=== PATIENT | female | born 1955 | race Caucasian/White ===

== ENCOUNTER → 2018-05-29 09:50 | Outpatient (CLI) | payer OTHER, SELFPAY ==
--- NOTE | 2018-05-29 09:53 | BI_ITS ---
MAMMOGRAPHY - BILATERAL SCREENING REASON FOR EXAM: Female, 62 years old. Routine annual screening examination. PERTINENT HISTORY: Non-contributory. TECHNIQUE: Digital bilateral breast curly (3D mammographic acquisition) in the CC and MLO projections. 2-D mediolateral oblique (MLO) and craniocaudad (CC) views of both breasts were obtained. CAD: Full Field Digital Mammography with Computer Added Detection was performed. COMPARISON: Comparison is made with prior examination dated May 19, 2017 and May 08, 2016. FINDINGS: Breast Composition: The breasts are heterogeneously dense, which may obscure small masses. There are no dominant masses or suspicious calcifications. A port is seen in the left axillary region. No other significant abnormalities are identified. There has been no significant change since the prior study. BI/SCREENING MAMM (CAD), BILAT IMPRESSION: Stable bilateral screening mammogram. Yearly follow-up mammogram recommended. (A) ASSESSMENT CATEGORY: BIRADS Category 2: Benign. A letter regarding these results will be sent to the patient by the facility within 30 days. Approximately 10% of breast cancers are not detected by mammography. A normal mammogram should not delay biopsy of a clinically suspicious abnormality. [id number] Electronically Signed: Chip Dubois MD at 10:57 EDT Tel [phone], Service support ,
== END ==
PROVIDERS: Family Provider Family Medicine; PCP Family Medicine; Visit Provider Family Medicine
DX: Z12.31 Encounter for screening mammogram for malignant neoplasm of breast (principal)
CPT/HCPCS: 77063; 77067

== ENCOUNTER 2018-08-03 06:36 | Day surgery (SDC) | payer OTHER, SELFPAY ==
[2018-08-03] VITALS (7 sets, daily range): BP systolic 101–120; BP diastolic 58–75; PULSE 60–70; RESP 16–18; TEMP 36.4–36.9; O2SAT 96–99
--- NOTE | 2018-08-03 08:00 | COLBX_PTH ---
PATIENT: LARA GARCIA LOC: EN U#:[id number] AGE/SX: 62/F ROOM: RE08/03/[address]: Dr. Dick De MD : 1955 BED: DIS: 08/03/2018 SPEC #: [id number] RECD: 08/03/18 10:38 STATUS: JULIETA ALEN #: [id number] ANTHONY: 08/03/18 08:[address]: Dick De DEPT: SURGICAL PATHOLOGY RECD BY: Mena Christina ENTERED: 08/03/18 11:09 SP TYPE: COLON BX OTHR DR: Dr. Katy Holland MD Tissues: COLON BIOPSY Procedures: Surgery Specimen Level IV HEADER OPERATION: Colonoscopy (MAC) PRE-OP DIAGNOSIS: History of colon cancer TISSUE SUBMITTED: Biopsy of colon anastomosis MICROSCOPIC DIAGNOSIS Colon anastomosis, biopsy: Fragments of colonic mucosa with focal ulceration, associated acute inflammation and granulation tissue reaction and reactive changes. Negative for malignancy. See comment. GURPREET:tony 08/04/18 COMMENT Please make reference to previous specimen ([id number]) sigmoid colon, colectomy with diagnosis of invasive mucinous adenocarcinoma. MICROSCOPIC DESCRIPTION Slides are reviewed. GROSS DESCRIPTION Received in fixative is one container labeled with the patient's name and designated biopsy of colon anastomosis. The specimen consists of multiple irregular fragments of light puckett soft tissue that in aggregate measure 2 x 0.3 x 0.1 cm. The specimen is totally submitted in one cassette. / GURPREET:tony 08/03/18 TC:2 CPT: 73886
--- NOTE | 2018-08-03 08:19 | PCM.HP.STD ---
Problem List (1) Personal history of colon cancer Status: Acute History of Present Illness Date of Admission: 08/03/18 The patient is a 62 year old F who presents today for colonoscopy. Patient status post laparoscopic sigmoid colectomy on 07/29/2017 this was for invasive moderately differentiated adenocarcinoma. Past Medical History Past Medical History (Chronic Problems): Chronic Problems (Last Reviewed 06/29/18 @ 13:13 by Dick De MD) Anemia (Chronic) Regional lymph node metastasis present (Chronic) Cancer of sigmoid colon (Chronic) Hypertension (Chronic) Neuropathy (Chronic) Medical History: Medical History (Last Reviewed 08/03/18 @ 08:21 by Dick De MD) Chemotherapy induced neutropenia (Resolved) D70.1, T45.1X5A Adjustment disorder (Acute) F43.20 Chemotherapy induced nausea and vomiting (Resolved) R11.2, T45.1X5A Iron deficiency anemia secondary to blood loss (chronic) (Resolved) D50.0 Educational circumstance (Acute) Z55.9 Anemia (Chronic) D64.9 Regional lymph node metastasis present (Chronic) C77.9 Cancer of sigmoid colon (Chronic) C18.7 Hypertension (Chronic) I10 Neuropathy (Chronic) G62.9 Hypokalemia (Acute) E87.6 Allergies No Known Allergies Allergy (Verified 08/03/18 06:53) Home Medications: Ambulatory Orders Medication Instructions Recorded Lisinopril [Zestril] 20 mg PO DAILY 07/11/17 traZODone [Desyrel] 50 mg PO QHS 07/11/17 Hydrochlorothiazide [Hctz] 12.5 mg PO DAILY 08/08/17 Iron Polysaccharide Complex 65 mg PO DAILYCM 08/19/17 [Ferrex 150] Potassium Chloride [K-Dur] 20 meq PO DAILY 01/26/18 Biotin 10 mg PO DAILY 07/31/18 Calcium Carbonate [Calcium] 600 mg PO DAILY 07/31/18 Surgical History: Surgical History (Last Reviewed 08/03/18 @ 08:21 by Dick De MD) History of cholecystectomy Z98.890, Z90.49 History of colon resection Z98.890, Z90.49 History of dilatation and curettage Z98.890 S/P hip replacement Z96.649 Surgical History: - - Microscopic partial colectomy Smoking Status: Never smoker Tobacco Use: Non-smoker - *Family History Paternal Family History: Family History (Last Reviewed 06/29/18 @ 13:13 by Dick De MD) Mother Hypertension COPD (chronic obstructive pulmonary disease) Emphysema lung Father Heart disease History Items: Heart Disease VTE Information - Inpt Only VTE Present on Admission: No VTE Mechan Device Prophylaxis: None VTE Pharm Prophylaxis ordered?: No Reason prophylaxis not ordered:: Treatment Not Indicated Patient Problems: Active and Suspected Problems (Last Reviewed 06/29/18 @ 13:13 by Dick De MD) Personal history of colon cancer (Acute) - Physical Exam General: Alert, Oriented x3 Lungs: Clear to auscultation Cardiovascular: Regular rate, Regular Rhythm, No murmurs Abdomen: Bowel Sounds Present, Soft, Non Tender, Non-Distended Vital Signs Temp Pulse Resp BP Pulse Ox 97.5 F L 70 16 120/75 99 08/03/18 07:09 08/03/18 07:09 08/03/18 07:09 08/03/18 07:09 08/03/18 07:09 Oxygen Delivery Method Room Air Weight: 163 lb 5.8 oz Assessment/Plan All Active Problems (Last Reviewed 06/29/18 @ 13:13 by Dick De MD) Personal history of colon cancer (Acute) Chemotherapy induced neutropenia (Resolved) Adjustment disorder (Acute) Chemotherapy induced nausea and vomiting (Resolved) Iron deficiency anemia secondary to blood loss (chronic) (Resolved) Educational circumstance (Acute) Hypokalemia (Acute) My plan will be to perform a colonoscopy on her.
--- NOTE | 2018-08-03 08:22 | PCM.OPRPT ---
Problem List (1) Personal history of colon cancer Status: Acute Report of Operation Date of Procedure: 08/03/18 Pre-Operative Diagnosis: Z85.038 personal history of colonic cancer Post-Operative Diagnosis: Same Surgery/Procedure Performed:: Colonoscopy with hot biopsies Type of Anesthesia:: MAC Description of Procedure: Patient was brought into the endoscopy suite. Placed in the left lateral decubitus position. Was given graded anesthesia. Scope was inserted into the rectum directed to the rectum, anastomosis, descending colon, transverse colon, ascending colon, to the cecum and into the terminal ileum. Operative findings: 1. Terminal ileum: Normal appearance no mass lesions no ulcerations normal ileocecal valve. 2. Cecum: Normal appearance no mass lesions. 3. Ascending colon: Normal appearance no mass lesions. 4. Transverse colon: Normal appearance no mass lesions. 5. Descending colon: Normal appearance no mass lesions. 6. Anastomosis: Friable glandular tissue was identified. I first biopsy these were cold biopsies and then I went back and biopsied them with hot biopsy. It bled quite easily and I injected 1 cc of epinephrine into the area as well. I had good hemostasis at the end. 7. Rectum: Normal appearance no mass lesion few internal hemorrhoids were identified. Patient will need another colonoscopy in one year. - Admit VTE Documentation VTE Present on Admission: No VTE Mechan Device Prophylaxis: None VTE Pharm Prophylaxis ordered?: No Reason prophylaxis not ordered:: Treatment Not Indicated
== END 2018-08-03 09:06 | disposition home or self-care (01) ==
LOC: EN 06:37 → AC 06:39
PROVIDERS: Family Provider Family Medicine; PCP Family Medicine; Visit Provider Surgery
PROC: 0DJD8ZZ Inspection of Lower Intestinal Tract, Via Natural or Artificial Opening Endoscopic (ICD-10-PCS; CPT 45378; principal; 2018-08-03 07:55)
DX: K63.3 Ulcer of intestine (principal); K64.8 Other hemorrhoids; Z85.038 Personal history of other malignant neoplasm of large intestine; Z90.49 Acquired absence of other specified parts of digestive tract; I10 Essential (primary) hypertension; D64.9 Anemia, unspecified; G62.9 Polyneuropathy, unspecified; F41.9 Anxiety disorder, unspecified; Z79.899 Other long term (current) drug therapy
CPT/HCPCS: 45380; 88305; J7120; J1610

== ENCOUNTER → 2018-10-14 11:20 | Outpatient (CLI) | payer OTHER, SELFPAY ==
[2018-10-14 14:38] LABS: Absolute Lymphocyte Count 2.17 X10^3/ul (0.83-4.51); Absolute Neutrophil Count 4.2 X10^3/uL (2.0-7.7); Basophil# 0.02 X10^3/uL; Basophil% 0.3 % (0-1); Eosinophil# 0.15 X10^3/uL; Eosinophils% 2.2 % (0-5); Hematocrit 39.5 % (37-47); Hemoglobin 13.3 g/dl (12.0-15.0); Lymphocyte # 2.17 X10^3/ul (4.0); Lymphocyte % 31.2 % (19-41); Mean Corp Hgb Conc 33.7 g/gl (32-36); Mean Corpuscular Hgb 31.4 pg (27.0-32.0); Mean Corpuscular Volume 93.4 fL (81-99); Mean Platelet Vol. 9.8 fl (6.2-12.0); Monocyte% 5.7 % (0-10); Neutrophil % 60.3 % (47-70); Platelet Count 255 K/mm3 (150-450); RBC Distribution Width CV 11.9 % (11.6-14.6); RBC Distribution Width SD 40.1 fl (35.1-43.9); Red Blood Count 4.23 M/mm3 (4.2-5.4)
[2018-10-14 14:52] LABS: Anion Gap 6 (5-15); BUN 16 mg/dL (7-18); BUN/Creat Ratio 18.6 RATIO (10-20); Calcium,Total 8.9 mg/dL (8.5-10.1); Chloride 102 mmol/L (98-107); Creatinine, Serum 0.86 mg/dL (0.55-1.02); EST Glomerular Filtration Rate 71 mL/min (>60); Est Glom Filt Rate - Afr Amer 85 mL/min (>60); Glucose 89 mg/dL (74-106); Iron 111 ug/dL (50-170); Potassium 4.1 mmol/L (3.5-5.1); Sodium Level 136 mmol/L (136-145)
[2018-10-14 14:55] LABS: POSITIVE COUNT NO; POSITIVE DIFFERENTIAL NO; POSITIVE MORPHOLOGY NO
[2018-10-19 15:54] LABS: HPV Reflexed? NOT INDICATED
== END ==
PROVIDERS: Family Provider Family Medicine; PCP Family Medicine; Visit Provider Family Medicine
DX: I10 Essential (primary) hypertension (principal); E61.1 Iron deficiency; Z12.4 Encounter for screening for malignant neoplasm of cervix
CPT/HCPCS: 36415; 80048; 83540; 85025; 88175; G0145

== ENCOUNTER → 2019-03-02 | Outpatient (CLI) | payer OTHER, SELFPAY ==
[2019-02-01 11:34] VITALS: BMI 27.1
--- NOTE | 2019-03-02 08:01 | CT_ITS ---
STUDY: CT CHEST WITH CONTRAST REASON FOR EXAM: Female, 63 years old. Rising CEA. History of colon cancer and chemotherapy. Prior sigmoid colon resection. RADIATION DOSAGE (If Supplied By Facility): CTDIvol = ( 14.94 ) mGy, DLP = ( 1420.27 ) mGycm TECHNIQUE: Transaxial imaging was performed following intravenous administration of 100 IV Isovue 300. Multiplanar coronal and sagittal images were reformatted. Individualized dose optimization techniques were used for this CT. COMPARISON: Comparison is made with prior study dated November 28, 2009. FINDINGS: Small bilateral axillary lymph nodes. There is a 7.7 mm hypodensity in the lower pole of the left lobe of the thyroid. The lungs are normal. There is no demonstrated pleural abnormality. There are calcifications of the coronary arteries. Normal mediastinum. Normal hilar regions. Normal enhanced pulmonary arteries. Normal aorta arch and descending thoracic aorta. There are multi-level degenerative changes of the thoracic spine. There is no demonstrated abnormality of the visualized upper abdomen. CT/Chest WITH Contrast IMPRESSION: No acute abnormality is seen. Electronically Signed: Chip Dubois, at 8:31 EDT , Service support ,
--- NOTE | 2019-03-02 08:01 | CT_ITS ---
STUDY: CT ABDOMEN AND PELVIS WITH CONTRAST REASON FOR EXAM: Female, 63 years old. Elevated CEA history of sigmoid colon cancer RADIATION DOSAGE (If Supplied By Facility): CTDIvol = ( 14.94 ) mGy, DLP = ( 1420.27 ) mGycm TECHNIQUE: Transaxial images were obtained from the dome of the diaphragm to the symphysis pubis without oral contrast. 100 IV Isovue 300 was administered. Sagittal and coronal images were reconstructed. Individualized dose optimization techniques were used for this CT. COMPARISON: July 14, 2017 FINDINGS: There is a tiny subcentimeter noncalcified nodule at the left lung base of uncertain etiology possibly metastatic. The visualized portions of the heart are within normal limits. Small hiatal hernia is noted. Normal liver. Normal gallbladder and extrahepatic biliary system. Spleen is normal size. There are 2 partially calcified densities in the splenic parenchyma Normal pancreas. Normal bilateral adrenal glands. No evidence for renal obstruction or ureteral calculus. There is a small simple cyst in the left kidney. Normal visualized stomach. Normal small intestine. Postsurgical changes status post sigmoid resection. No evidence for acute appendicitis. There are tiny pericecal nodes of uncertain clinical significance. There is also a small nodule in the mesenteric fat demonstrating calcification measuring approximately 9 mm in size possibly also representing a node Mild atherosclerotic changes of the aorta without evidence for aneurysm. Normal inferior vena cava. Normal retroperitoneum. Normal urinary bladder. There is a small amount of fluid within the cul-de-sac. Normal abdominal wall. Lumbar spine demonstrates mild spondylosis. There is a small sclerotic density within the L1 vertebral body. Possibility of blastic metastasis not excluded The findings not significantly changed since prior exam except for a small amount of fluid within the cul-de-sac.. Bilateral hip prostheses are present CT/Abdomen/Pelvis W IV Cont ONLY IMPRESSION: Stable appearance to tiny subcentimeter noncalcified nodule in left lower lobe. No definitive evidence for hepatic metastasis or pathologic lymphadenopathy utilizing CT size criteria. PET scan would be helpful for further evaluation Small amount of fluid within the cul-de-sac. Pelvic sonogram would be useful for further evaluation. Electronically Signed: Guero Soriano MD at 22:09 EDT , Service support ,
== END | disposition home or self-care (01) ==
LOC: CT 07:58
PROVIDERS: Family Provider Family Medicine; PCP Family Medicine; Referring Provider Internal Medicine Hematology & Oncology; Visit Provider Internal Medicine Hematology & Oncology
DX: Z85.038 Personal history of other malignant neoplasm of large intestine (principal)
CPT/HCPCS: 71260; 74177; Q9967

== ENCOUNTER 2019-03-18 07:46 | Day surgery (SDC) | payer OTHER, SELFPAY ==
[2019-03-09 09:15] VITALS: BMI 27.3
--- NOTE | 2019-03-09 14:18 | HP_ITS ---
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 Is patient in pain?: No Allergies No Known Allergies Allergy (Verified 03/09/19 09:15) Medications Lisinopril [Zestril] 20 mg PO DAILY 07/11/17 [History Confirmed 03/09/19] Hydrochlorothiazide [Hctz] 12.5 mg PO DAILY 08/08/17 [History Confirmed 03/09/19] Potassium Chloride [K-Dur] 20 meq PO DAILY 01/26/18 [History Confirmed 03/09/19] Calcium Carbonate [Calcium] 600 mg PO DAILY 07/31/18 [History Confirmed 03/09/19] [facility] Medical History Chemotherapy induced neutropenia (Resolved) Adjustment disorder (Acute) Chemotherapy induced nausea and vomiting (Resolved) Iron deficiency anemia secondary to blood loss (chronic) (Resolved) Educational circumstance (Acute) Anemia (Resolved) Regional lymph node metastasis present (Chronic) Cancer of sigmoid colon (Chronic) Hypertension (Chronic) Neuropathy (Chronic) Hypokalemia (Acute) Surgical History History of cholecystectomy (Acute) History of colon resection (Acute) History of dilatation and curettage (Acute) S/P hip replacement (Acute) Family History Mother Hypertension COPD (chronic obstructive pulmonary disease) Emphysema lung Father Heart disease Social History Smoking Status: Never smoker alcohol intake: current alcohol intake frequency: holidays/special occasions only substance use type: does not use HPI HPI HPI: LARA GARCIA, is a 63 F who presents to the office today for HPI HPI Surgical H&P: Yes HPI: Patient is a 61-year-old female who presented in the summer 2016 with rectal bleeding of new onset. She had not had screening colonoscopies prior. Colonoscopy in June 2017 showed a mass lesion at 35 cm confirmed to be a carcinoma on biopsy. On July 29, 2017 she underwent a laparoscopic sigmoid colectomy by myself. At the same time she underwent cystoscopy and left ureteral catheter placement. Pathology revealed an invasive moderately differentiated adenocarcinoma that focally penetrated to the surface of the visceral peritoneum, margins were negative, metastatic cancer was identified in 4 out of 31 dissected lymph nodes. Tumor was negative for microsatellite stability. She completed adjuvant systemic therapy October 2017 through January 2018 (see below for details) and went on surveillance. January 2019 she was noted to have an asymptomatic rise in CEA, no measurable disease identified on CT scans of the chest abdomen and pelvis February 2019. ROS General General: Yes weight change and colon cancer; no appetite, fatigue, breast cancer or weakness HEENT HEENT: No difficulty swallowing, eye injury, eye surgery, swollen glands or hoarseness Endo Endocrine: No thyroid disease, diabetes mellitus, thyroid cancer, Hair loss, heat intolerance or cold intolerance Skin Skin: No rash or changing moles Breast Breast: No left breast lump, right breast lump, nipple discharge, breast pain, abnormal mammogram, abnormal US or breast enlargement Musc Musculoskeletal: Yes arthritis; no back problems, rheumatoid arthritis, gout or joint pain Cardio Cardiovascular: Yes high blood pressure; no murmur, pacemaker, heart disease, atrial fibrillation, heart attack, heart stent, palpitations, shortness of breat with exertion or chest pain Psych Psychiatric: Yes depression and anxiety; no hearing voices Resp Respiratory: No shortness of breath, No sleep apnea, No cough, No COPD, No asthma, No emphysema, No wheezing Gastro Gastrointestinal: No abdominal pain, No nausea or vomiting, No diarrhea, No constipation, No blood in stool, No acid reflux, Yes hemorrhoids, No ulcers, No gallbladder problem, No black,tarry stools Lewis Hematologic: No blood thinners, No blood disorders, No bleeding, No anemia, No blood clots Neuro Neurologic: No system reviewed and no additional complaints, except as docu, No as per HPI, No abnormal walking, No abnormal hearing, No abnormal movements, No abnormal speech, No behavioral changes, No burning sensations, No confusion, No seizure-like activity, No unsteadiness, No dizziness, No localized weakness, No frequent falls, No headache(s), No lack of coordination, No loss of vision, No memory loss, Yes numbness, No other visual disturbances, No radiating pain, No restless legs, No sensory deficit, No fainting, Yes tingling, No tremor(s), No weakness, No other Exam Const General: no acute distress, well developed, well hydrated Orientation: oriented to person, oriented to place, oriented to time [facility] Head: normocephalic, atraumatic Ears: external ears normal Mouth: moist mucous membranes Eyes Sclera: sclerae normal Pupils: normal by confrontation Neck Neck: no lymphadenopathy noted Neck mass: No Thyroid: thyroid normal, symmetrical Chest Chest palpation & inspection: normal inspection of the chest Breast Palpation: No nipple discharge Resp Effort & Inspection: normal respiratory effort Auscultation: clear to auscultation bilaterally Percussion: percussion normal Cardio Rate: regular rate Rhythm: regular rhythm Heart Sounds: no murmurs GI Palpation: soft, no hepatosplenomegaly, no masses, nontender Rectal Exam: other Other: Rectal exam deferred. Extrem General: normal to inspection, no clubbing, cyanosis or edema Assessment & Plan Problems 1. Elevated CEA R97.0 2. Personal history of colon cancer Z85.038 Plan I have discussed the above with the patient. I have offered the patient colonoscopy for evaluation. I have explained the risks/benefits of the procedure and described the procedure. I have discussed the risks with the patient, including but not limited to: infection, bleeding, perforation of the GI tract requiring emergency surgery, inability to complete the procedure, injury to any internal organs, complications of anesthesia, etc. - the patient understands and agrees to proceed. I have answered all the patient's questions to the patient's satisfaction and the patient has no further questions. The patient has been given instructions for the colon cleansing preparation. After her colonoscopy the patient may benefit from seeing a oncologic surgeon done at [facility] I will discuss this with her oncology physician Orders Orders: Colonoscopy Today Coding Level of Care Code Off vis,est,level 3 Diagnoses Elevated CEA R97.0 Personal history of colon cancer Z85.038
[2019-03-18 08:09] VITALS: BP 122/85; PULSE 78; RESP 18; TEMP 36.1; O2SAT 99; BMI 27.0
[2019-03-18 09:05] VITALS: BP 101/66; BP 122/85; PULSE 70; RESP 18; TEMP 36.3; O2SAT 97
--- NOTE | 2019-03-18 09:09 | OP.ENDO_ITS ---
03/18/2019 Katy Holland [address] [place] [address] Re : Colonoscopy procedure for Miladys Calloway Dear Dr. Holland This procedure was performed on February. My impressions and recommendations are as follows: Impressions : - Patent end-to-end colo-colonic anastomosis, characterized by healthy appearing mucosa. - Diverticulosis in the descending colon. No specimens collected. - The examination was otherwise normal. Recommendations : - Discharge patient to home. - Resume previous diet. - Continue present medications. - Repeat colonoscopy in 1 year for surveillance. - Return to my office in 1 year. My findings are described in the full procedure note, which is enclosed. If I can be of further assistance, please feel free to contact me at Doctor phone number(s): , Fax: [phone], Work: . Sincerely, MD Dick Bundy MD 03/18/2019 9:08:43 AM This report has been signed electronically.
[2019-03-18 09:10] VITALS: BP 105/66; BP 122/85; PULSE 65; RESP 18; O2SAT 96
[2019-03-18 09:15] VITALS: BP 103/68; BP 122/85; PULSE 66; RESP 18; O2SAT 99
[2019-03-18 09:20] VITALS: BP 110/68; BP 122/85; PULSE 64; RESP 18; TEMP 36.2; O2SAT 99
[2019-03-18 09:37] VITALS: BP 122/85
== END 2019-03-18 09:40 | disposition home or self-care (01) ==
LOC: EN 07:48 → AC 07:48
PROVIDERS: Family Provider Family Medicine; PCP Family Medicine; Referring Provider Family Medicine; Visit Provider Surgery
PROC: 0DJD8ZZ Inspection of Lower Intestinal Tract, Via Natural or Artificial Opening Endoscopic (ICD-10-PCS; CPT 45378; principal; 2019-03-18 08:55)
DX: K57.30 Diverticulosis of large intestine without perforation or abscess without bleeding (principal); R97.0 Elevated carcinoembryonic antigen [CEA]; Z85.038 Personal history of other malignant neoplasm of large intestine; I10 Essential (primary) hypertension; E87.6 Hypokalemia; F41.9 Anxiety disorder, unspecified; F32.9 Major depressive disorder, single episode, unspecified; Z98.0 Intestinal bypass and anastomosis status; Z79.899 Other long term (current) drug therapy
CPT/HCPCS: 45378; J7120; J1610

== ENCOUNTER → 2019-04-16 | Outpatient (CLI) | payer OTHER, SELFPAY ==
[2019-04-15 09:32] VITALS: BMI 27.3
--- NOTE | 2019-04-16 13:43 | US_ITS ---
STUDY: ULTRASOUND OF THE FEMALE PELVIS - COMPLETE REASON FOR EXAM: Female, 63 years old. Abnormal PET scan LMP: Postmenopausal TECHNIQUE: Transvaginal TECHNICAL QUALITY: Adequate. COMPARISON: None. FINDINGS: The uterus is anteverted and is in a midline position. The uterus measures 5.3 x 3.9 x 3.9 cm. Normal uterine cervix. The endometrium measures 6.8 mm in thickness, and is hyperechoic. There is no demonstrated endometrial mass. There is no demonstrated myometrial mass. I.U.D. - The patient does not have an I.U.D. The right ovary is visualized. The right ovary measures 4.0 x 3.5 x 3.5 cm. There is no right ovarian cyst or ovarian mass. There is a questionable right adnexal mass, which was not measured. There is normal arterial and normal venous vascularity. The left ovary is visualized. The left ovary measures 2.6 x 2.0 x 2.4 cm. There is no left ovarian cyst or ovarian mass. There is no visualized left adnexal mass or complex lesion. There is normal arterial and normal venous vascularity. There is minimal fluid in the cul-de-sac. The pre void volume of the bladder was 566 ml. Polycystic ovary disease: No. US/Pelvic (Non ) IMPRESSION: Questionable right adnexal mass, which was not measured. Small amount of fluid in the cul-de-sac. Electronically Signed: Mata Jacques MD at 16:47 EDT , Service support ,
--- NOTE | 2019-04-16 13:43 | US_ITS ---
STUDY: ULTRASOUND OF THE FEMALE PELVIS - COMPLETE REASON FOR EXAM: Female, 63 years old. Abnormal PET scan LMP: Postmenopausal TECHNIQUE: Transvaginal TECHNICAL QUALITY: Adequate. COMPARISON: None. FINDINGS: The uterus is anteverted and is in a midline position. The uterus measures 5.3 x 3.9 x 3.9 cm. Normal uterine cervix. The endometrium measures 6.8 mm in thickness, and is hyperechoic. There is no demonstrated endometrial mass. There is no demonstrated myometrial mass. I.U.D. - The patient does not have an I.U.D. The right ovary is visualized. The right ovary measures 4.0 x 3.5 x 3.5 cm. There is no right ovarian cyst or ovarian mass. There is a questionable right adnexal mass, which was not measured. There is normal arterial and normal venous vascularity. The left ovary is visualized. The left ovary measures 2.6 x 2.0 x 2.4 cm. There is no left ovarian cyst or ovarian mass. There is no visualized left adnexal mass or complex lesion. There is normal arterial and normal venous vascularity. There is minimal fluid in the cul-de-sac. The pre void volume of the bladder was 566 ml. Polycystic ovary disease: No. US/Transvaginal Non- IMPRESSION: Questionable right adnexal mass, which was not measured. Small amount of fluid in the cul-de-sac. Electronically Signed: Mata Jacques MD at 16:47 EDT , Service support ,
== END | disposition home or self-care (01) ==
LOC: US 13:42
PROVIDERS: Family Provider Family Medicine; PCP Family Medicine; Referring Provider Internal Medicine Hematology & Oncology; Visit Provider Internal Medicine Hematology & Oncology
DX: C18.7 Malignant neoplasm of sigmoid colon (principal); R93.89 Abnormal findings on diagnostic imaging of other specified body structures; R97.0 Elevated carcinoembryonic antigen [CEA]
CPT/HCPCS: 76830; 76856; 93976

== ENCOUNTER 2019-06-16 11:37 | Emergency (ER) | payer OTHER, SELFPAY ==
[2019-04-15 09:32] VITALS: BMI 27.3
[2019-06-16 11:39] VITALS: BP 111/81; PULSE 101; RESP 20; TEMP 36.6; O2SAT 98; BMI 25.7
--- NOTE | 2019-06-16 12:20 | RAD_ITS ---
STUDY: X-RAY CHEST REASON FOR EXAM: Female, 63 years old. Palpitations TECHNIQUE: Single AP portable view of the chest. COMPARISON: 08/22/2017 FINDINGS: EKG leads overlie the chest The lungs are clear and expanded. There is no demonstrated pleural abnormality. Normal size heart. Normal mediastinum and sushil. Normal visualized pulmonary arteries. Normal visualized aortic arch and descending thoracic aorta. Normal visualized thoracic spine. Normal visualized ribs, clavicles, and shoulders. There is no demonstrated abnormality of the visualized soft tissue structures of the upper abdomen. RAD/Chest 1 View (Portable) IMPRESSION: Normal x-ray examination of the chest. Electronically Signed: Christian Jolly MD at 12:42 EDT , Service support ,
--- NOTE | 2019-06-16 12:21 | EKG12_ITS ---
Test Reason : PALPITATIONS Blood Pressure : / mmHG Vent. Rate : 100 BPM Atrial Rate : 100 BPM P-R Int : 138 ms QRS Dur : 080 ms QT Int : 344 ms P-R-T Axes : 064 066 059 degrees QTc Int : 443 ms Sinus rhythm with Premature atrial complexes Otherwise normal ECG Confirmed by ERIC KING ([id number]), market editor SADA MO ([id number]) on 06/17/2019 9:47:55 AM Referred By: TL Confirmed By:ERIC KING
[2019-06-16 12:35] LABS: Hematocrit 33.8 % (37-47); Hemoglobin 11.3 g/dL (12.0-15.0); Mean Corp Hgb Conc 33.4 g/dL (32-36); Mean Corpuscular Hgb 30.8 pg (27.0-32.0); Mean Corpuscular Volume 92.1 fL (81-99); Mean Platelet Vol. 8.7 fl (6.2-12.0); POSITIVE COUNT YES; POSITIVE DIFFERENTIAL YES; POSITIVE MORPHOLOGY YES; RBC Distribution Width CV 12.5 % (11.6-14.6); Red Blood Count 3.67 M/mm3 (4.2-5.4); White Blood Count 23.2 K/mm3 (4.4-11.0)
--- NOTE | 2019-06-16 12:35 | ED.DCSUM_ITS ---
History of Present Illness Chief Complaint: Palpitations Informant: Patient, Family Onset: Today Narrative: Sudden dizziness and palpitations while getting ready to go to [place] for oncology appointment for follow-up. Denies chest pains or any syncopal episodes. Did not feel right. EMS was called, initial EKG obtained noted SVT at rate of 192. Reported she was given 150 mg of amiodarone, shortly afterwards she states she was feeling better. A repeat EKG noted conversion to sinus rhythm with occasional PACs on my review. Patient denies any history of SVT. She is being treated for recurrent colon cancer. Initially diagnosed in 2017. 3 weeks ago managed in [place] followed by Dr. Alegria, surgeon who they reported colectomy with ostomy bag also had a total hysterectomy partial splenectomy, partial removal of liver reporting is all superficial. Had a follow-up with [facility] onc[facility] Dr. Markham today. Also reports that she had some muscle strain left upper chest and arm, she had called in prescription of Flexeril that she takes intermittently. Currently on oxycodone as needed for which takes a half a pill every 4 hours. No recent vomiting or diarrhea. Currently improving symptoms. Reports history of hypertension on hydrochlorothiazide and lisinopril blood pressure normally 130s to 140s. Heart rate normally in the 70s. Prior similar symptoms: No Past Medical History - Allergies and Home Meds Allergies/Adverse Reactions: Allergies No Known Allergies Allergy (Verified 06/16/19 11:44) Primary Care Physician: Katy Holland MD [Primary Care Provider] - Surgical History: - - Microscopic partial colectomy Smoking Status: Never smoker - Family History Paternal Family History: Family History (Last Reviewed 04/15/19 @ 09:31 by Mya Tavarez) Mother Hypertension COPD (chronic obstructive pulmonary disease) Emphysema lung Father Heart disease Family History: Reports: Heart Disease Review of Systems General: Denies: Chills, Fever, Sweats Eyes: Denies: Visual changes - bilaterally, Diplopia ENT: Denies: Rhinorrhea, Sore throat Cardiovascular: Reports: Palpitations, Heart racing. Denies: Chest pain Respiratory: Denies: Dyspnea, Cough, Dyspnea on exertion Gastrointestinal: Denies: Abdominal pain, Nausea, Vomiting, Diarrhea, Melena, Hematochezia Genitourinary: Denies: Dysuria, Hematuria, Frequency Musculoskeletal: Denies: Back pain, Extremity Pain Skin: Denies: Rash, Wounds Neurological: Denies: Headache, Weakness, Numbness Physical Exam Vital Signs/Narrative: Vital Signs Temp Pulse Resp BP Pulse Ox 06/16/19 11:39 97.9 F 101 H 20 H 111/81 H 98 General: Well nourished, Well developed, No Acute Distress Head: Normocephalic, Atraumatic Eyes: Perrl, EOMI ENT: Moist mucous membranes, No rhinorrhea Neck: Supple, Nontender Cardiovascular: Regular rate, Regular rhythm, No murmurs Respiratory: No distress, CTA bilaterally, Chest nontender Abdomen: Soft, Nondistended, Normal bowel sounds, - - Midline scar with Steri- Strips clean, dry, intact. Right lower quadrant ostomy. Back: Nontender, Normal Inspection Extremities: Nontender, No edema Skin: Normal color, No rash Neurological: Alert, Oriented x3, Cranial nerves II-XII grossly intact, Normal Strength, Normal Sensation Psychological: Normal affect, Normal Mood Diagnostic/Tx/Re-eval Clinical Impression(s) from Imaging Studies Abnormal Lab Results 06/16/19 06/16/19 11:57 11:57 WBC 23.2 H RBC 3.67 L Hgb 11.3 L Hct 33.8 L MCV 92.1 MCH 30.8 MCHC 33.4 RDW Std Deviation 42.0 RDW Coeff of Akira 12.5 Plt Count 975 H* MPV 8.7 Neut % (Auto) Not Reportable Absolute Neuts (auto) 18.6 H Absolute Lymphs (auto) 1.90 Absolute Nucleated RBC Not Reportable Total Counted 100 Neutrophils % (Manual) 79 H Band Neutrophils % 1 Lymphocytes % (Manual) 8 L Monocytes % (Manual) 6 Eosinophils % (Manual) 2 Metamyelocytes % 3 H Myelocytes % 1 H Nucleated RBCs/100 WBC 1 Diff Path Review May foll Platelet Estimate MKD INC Plt Morphology Comment GIANT RBC Morphology NORM C+C Sodium 132 L Potassium 4.5 Chloride 96 L Carbon Dioxide 25.0 Anion Gap 11 BUN 26 H Creatinine 0.89 Estim Creat Clear Calc 62.10 Est GFR (MDRD) Af Amer 82 Est GFR (MDRD) Non-Af 68 BUN/Creatinine Ratio 29.1 H Glucose 110 H Calcium 9.5 Magnesium 1.9 Troponin I < 0.015 TSH 0.86 Clinical Impression(s) from Imaging Studies Chest X-Ray 06/16/19 12:20 IMPRESSION: Normal x-ray examination of the chest. Electronically Signed: Christian Jolly MD at 12:42 EDT , Service support , Abdomen/Pelvis CT 06/16/19 13:43 IMPRESSION: Gallbladder no longer visualized. There is fluid noted in the gallbladder fossa likely postoperative. Spleen also no longer identified, previous splenectomy likely. Right lower quadrant ostomy free of complication Nonspecific induration of the mesenteric and retroperitoneal fat, dependent free fluid in the pelvis Electronically Signed: Christian Jolly MD at 15:11 EDT , Service support , - EKG Initial EKG Interpretation: Sinus Rhythm - Sinus rhythm of 100, no ST or T wave changes. - Medical Decision Making Patient has converted currently in sinus rhythm. I did check electrolytes mag and TSH are normal. She remains in sinus rhythm. However additional labs noted leukocytosis of 23, she had platelets of 975. She has no fevers. She has postsurgical pains with no worsening symptoms. She is post surgery, however normal platelets back in February. She denies any urine symptoms chest x-ray is negative. She has no cough. With her cancer and her thrombocytosis and leukocytosis, and discuss patient findings, they would like me to talk with her oncologist down in [place] Dr. Alegria. He is on page for discussion for plan of care. 1344: I spoke with Dr. Alegria, reports she had a total splenectomy not a partial one which can cause both her leukocytosis and thrombocytosis. Discusses her x- ray was negative. He recommended CT scan IV contrast to rule out any potential infectious source or complications. She has an appointment tomorrow with him to follow-up with. He is okay discharging her with things are negative. Results of CT was negative for any complicated process. Urine noted slight bacteria however had epithelial she is asymptomatic, culture was sent. No antibiotics at this time. For her SVT she is remained stable, I spoke with on-call occupational therapy assist, Dr. Ryder, discuss her history and findings and vital signs. He recommended Ca rdizem CD 120 mg, recommended I speak with his nurse up in the office to update history and for patient information to be given for close follow-up outpatient with treatment and ultrasound. I spoke with Shanti updated on findings. Office will call patient for an appointment for follow-up. Discussed this with family and patient who understands. All questions were answered. ED Disposition - Plan for ED Patient: Disposition: Home or Assisted Living Diagnosis: Leukocytosis, Thrombocytosis after splenectomy, SVT (supraventricular tachycardia) Prescriptions: Diltiazem CD [Cardizem CD] 120 mg PO DAILY #30 capsule Referrals: Katy Holland MD [Primary Care Provider] - Dick Ryder MD [STAFF PHYSICIAN] - 5-7 Days Additional Instructions: You had a rhythm called supraventricular tachycardia today. You converted with EMS treatment. Discussed with Dr. Rydre, start Cardizem as prescribed for you, start dosing tomorrow. Monitor for lightheaded symptoms and blood pressure. Blood pressure becomes low he may want to hold your lisinopril. Dr. Koo's office will call you for an appointment next week, you can call to follow-up. You had elevated white blood cell count of 23, platelets of 975. This can be a result of your recent splenectomy. CT scan of your abdomen and pelvis negative for any postoperative complications or infection. You have an appointment with Dr. Alegria tomorrow. Keep this appointment.
[2019-06-16 12:40] LABS: Differential Indicated MANUAL DIFF; Platelet Count 975 K/mm3 (150-450)
[2019-06-16 12:42] VITALS: BP 102/83; PULSE 98; RESP 16; O2SAT 98
--- NOTE | 2019-06-16 12:42 | ED.RN ---
LAB CALL WITH CRITICAL RESULT PLATELETS 975. VERBALLY REPORTED TO DR. HINOJOSA.
[2019-06-16 12:58] LABS: Anion Gap 11 (5-15); BUN 26 mg/dL (7-18); BUN/Creat Ratio 29.1 RATIO (10-20); Calcium,Total 9.5 mg/dL (8.5-10.1); Chloride 96 mmol/L (98-107); Creatinine, Serum 0.89 mg/dL (0.55-1.02); EST Glomerular Filtration Rate 68 mL/min (>60); Est Glom Filt Rate - Afr Amer 82 mL/min (>60); Glucose 110 mg/dL (74-106); Magnesium 1.9 mg/dL (1.6-2.6); Potassium 4.5 mmol/L (3.5-5.1); Sodium Level 132 mmol/L (136-145); Thyroid Stim Hormone (TSH) 0.86 uIU/mL (0.358-3.74)
[2019-06-16 13:10] LABS: Eosinophil 2 % (0-5); Lymphocyte 8 % (19-41); Metamyelocyte 3 % (0-1); Monocyte 6 % (0-10); Myelocyte 1 (0-0); Neutrophil-Band 1 % (0-5); Neutrophil-Segmented 79 % (47-70); Nucleated Red Bld Cells,Manual 1 % (0-5); Total Cells Counted 100 (MANUAL DIFF)
[2019-06-16 13:11] LABS: Platelet Estimate MKD INC (ADEQ); Platelet Morphology GIANT; Red Cell Morphology NORM C+C NORMAL (NORM C&C)
[2019-06-16 13:12] LABS: Absolute Neutrophil Count 18.6 X10^3/uL (2.0-7.7); Neutrophil # 18.56 X10^3/uL (2.7-7.7)
--- NOTE | 2019-06-16 13:43 | CT_ITS ---
STUDY: CT ABDOMEN AND PELVIS WITH CONTRAST REASON FOR EXAM: Female, 63 years old. Dizziness, elevated white count RADIATION DOSAGE (If Supplied By Facility): CTDIvol = ( 13.56 ) mGy, DLP = ( 896.87 ) mGycm TECHNIQUE: Transaxial images were obtained from the dome of the diaphragm to the symphysis pubis without oral contrast. 100 IV Isovue 300 was administered. Sagittal and coronal images were reconstructed. Individualized dose optimization techniques were used for this CT. COMPARISON: 03/02/2019 FINDINGS: There are chronic interstitial fibrotic changes of the lung bases. The visualized portions of the heart are within normal limits. Normal liver. Gallbladder not visualized, there is a small amount of fluid in the gallbladder fossa. Previous splenectomy. Normal pancreas. Normal bilateral adrenal glands. Normal right kidney. Normal left kidney. Normal visualized stomach. Normal small intestine. Normal colon. There is non-visualization of the appendix. There is a right lower quadrant ostomy free of complication. Normal abdominal aorta. Normal inferior vena cava. Normal retroperitoneum. Normal urinary bladder. Normal visualized uterus. Postsurgical changes noted in the ventral abdominal wall, the previously noted ostomy is free of complication. There is nonspecific induration of the mesenteric and retroperitoneal fat and dependent free fluid noted in the cul-de-sac. There are diffuse degenerative changes of the visualized lumbar spine, and pelvis. Bilateral hip replacements free of complication CT/Abdomen/Pelvis W IV Cont ONLY IMPRESSION: Gallbladder no longer visualized. There is fluid noted in the gallbladder fossa likely postoperative. Spleen also no longer identified, previous splenectomy likely. Right lower quadrant ostomy free of complication Nonspecific induration of the mesenteric and retroperitoneal fat, dependent free fluid in the pelvis Electronically Signed: Christian Jolly MD at 15:11 EDT , Service support ,
[2019-06-16 14:00] VITALS: BP 112/77; PULSE 93; RESP 20; O2SAT 97
--- NOTE | 2019-06-16 14:36 | ED.RN ---
UNABLE TO CHART AGAINST MAR FOR 500CC BOLUS. FLUIDS WERE ADMINISTERED.
[2019-06-16 15:33] LABS: Bacteria 0 SEEN /hpf (None Seen); Mucous, Urine 0 SEEN /hpf (<or=2+)
[2019-06-16 15:57] LABS: Color, Urine Yellow (Yellow); Glucose, Dipstick Normal (Normal); Ketone-Dipstick 50 mg/dl (Negative); Leukocyte Esterase-Dipstick 100 /ul (Negative); Nitrite-Dipstick Negative (Negative); Occult Blood-Urine 10 /ul (Negative); Protein-Dipstick Negative (Negative); Urine Bilirubin Dipstick Negative (Negative); Urine Clarity Clear (Clear); Urine Urobilinogen Normal (Normal)
[2019-06-16 16:09] LABS: Red Blood Cells-Urine 0-5 SEEN /hpf (0-5); Squamous Epithelial Cells - UA 5-10 SEEN /hpf (5-10); White Blood Cells 5-10 SEEN /hpf (0-5)
[2019-06-16 16:31] VITALS: BP 143/75; PULSE 86; RESP 16; O2SAT 96
[2019-06-16 16:32] VITALS: BP 143/75; PULSE 86; RESP 16; O2SAT 96
[2019-06-16 17:00] VITALS: BP 131/70; PULSE 93; RESP 16; O2SAT 96
[2019-06-16] MEDS: dilTIAZem CD 120 MG Capsule PO (17:02)
[2019-06-17 13:50] LABS: Pathologist Review Reviewed
== END 2019-06-16 17:07 | disposition home or self-care (01) ==
PROVIDERS: Emergency Provider Emergency Medicine; Family Provider Family Medicine; PCP Family Medicine
DX: I47.1 Supraventricular tachycardia (principal); D72.829 Elevated white blood cell count, unspecified; D47.3 Essential (hemorrhagic) thrombocythemia; C80.1 Malignant (primary) neoplasm, unspecified; I10 Essential (primary) hypertension; Z90.81 Acquired absence of spleen; Z90.49 Acquired absence of other specified parts of digestive tract; Z79.891 Long term (current) use of opiate analgesic; Z79.899 Other long term (current) drug therapy
CPT/HCPCS: 71045; 74177; 80048; 81001; 83735; 84443; 84484; 85025; 87086; 87088; 93005; 96360; 96361; 99285; J7030; J7040; Q9967; A4216

== ENCOUNTER → 2019-07-07 | Outpatient (CLI) | payer OTHER, SELFPAY ==
[2019-06-22 13:08] VITALS: BMI 24.0
--- NOTE | 2019-07-07 13:46 | ECHOD_ITS ---
Reason For Study: Arrhythmia Procedure This was a 2D Doppler, Color Flow transthoracic echocardiogram. The study was technically difficult. Contrast injection was performed. Unable to perform STRAIN due to needed use of Definity. Patient recently had abdominal surgery and bandages are still in place, this resulted in no subcostal images. Exam performed in department. Left Ventricle Mild concentric left ventricular hypertrophy. The estimated ejection fraction is 65 %. Stage 1 diastolic dysfunction. No regional wall motion abnormalities noted. Right Ventricle Normal size and thickness. Normal systolic function. Atria Normal left atrium. Normal right atrium. Normal atrial septum. Mitral Valve The mitral valve is structurally normal. No prolapse or stenosis seen. Tricuspid Valve Normal tricuspid valve. Trivial tricuspid valve insufficiency. Right ventricular systolic pressure estimated to be 24 mmHg. Aortic Valve Normal aortic valve. Trisinus/trileaflet aortic valve. Pulmonic Valve The pulmonic valve is not well visualized. Great Vessels Normal aortic root. Normal arch. Pericardium/Pleural No pericardial effusion. Medication 22 gauge I.V. with prn adaptor inserted into left arm. Diluted definity 2ml given slow IV push to enhance endocardial definition. MMode/2D Measurements & Calculations LVIDd: 3.0 cm IVSd: 1.2 cm LVIDs: 2.4 cm LVPWd: 1.4 cm FS: 21.1 % Time Measurements MV dec time: 0.32 sec Doppler Measurements & Calculations MV E max darek: 50.6 cm/sec Lat Peak E' Darek: 5.0 cm/sec Med Peak E' Darek: 6.0 cm/sec MV A max darek: 71.0 cm/sec E/E' lat: 10.0 E/E' med: 8.4 MV E/A: 0.71 MV V2 max: 86.7 cm/sec MV P1/2t max darek: 63.6 cm/sec Ao V2 max: 110.7 cm/sec MV max P.0 mmHg MV P1/2t: 84.4 msec Ao max P.9 mmHg MV V2 mean: 47.9 cm/sec Ao V2 mean: 69.1 cm/sec MV mean P.0 mmHg MV dec slope: 220.5 cm/sec2 Ao mean P.3 mmHg MV V2 VTI: 21.3 cm MVA(P1/2t): 2.6 cm2 Ao V2 VTI: 14.9 cm LV V1 max: 100.8 cm/sec PA V2 max: 78.0 cm/sec TR max darek: 217.1 cm/sec LV V1 max P.1 mmHg TR max P.8 mmHg LV V1 mean P.9 mmHg LV V1 mean: 63.5 cm/sec LV V1 VTI: 16.1 cm Interpretation Summary The estimated ejection fraction is 65 %. Mild concentric left ventricular hypertrophy. Stage 1 diastolic dysfunction. Trivial tricuspid valve insufficiency. Right ventricular systolic pressure estimated to be 24 mmHg. The study was technically difficult. Contrast injection was performed. There is no comparison study available. Ordering Physician: Dick Ryedr Referring Physician: Dick Ryder Performed By: Christophe Bender RCS
== END | disposition home or self-care (01) ==
LOC: CVS 13:46
PROVIDERS: Family Provider Family Medicine; PCP Family Medicine; Referring Provider Internal Medicine Cardiovascular Disease; Visit Provider Internal Medicine Cardiovascular Disease
DX: I47.1 Supraventricular tachycardia (principal)
CPT/HCPCS: 93306; Q9957; A4216; C8929

== ENCOUNTER → 2019-09-06 | Outpatient (CLI) | payer MEDICARE, OTHER, SELFPAY ==
[2019-07-28 09:43] VITALS: BMI 21.7
[2019-09-02 13:22] VITALS: BMI 21.4
--- NOTE | 2019-09-06 12:50 | STEWCON_ITS ---
Reason For Study: Arrhythmia Stress Results Protocol: Dobutamine Stress Echo Maximum Predicted HR: 156 bpm Target HR: 133 bpm % Maximum Predicted HR: 90 % DurationHeart Rate Stage (mm:ss) (bpm) BP Comment Baseline 73 123/78No Chest Pain; 4 ML Diluted Definity Given DSE 10 MCG 3:27 79 133/63No Chest Pain DSE 20 MCG 3:06 102 146/70No Chest Pain DSE 30 MCG 3:00 116 133/71No Chest Pain DSE 40 MCG 4:12 141 130/69No Chest Pain Recovery 92 121/76No Chest Pain Stress Duration: 13:45 mm:ss Maximum Stress HR: 141 bpm METS: 1 Baseline Echocardiogram Findings The estimated ejection fraction is 65 %. Stress Echo Wall motion Data Resting WM Intermediate WM Stress WM Resting Wall Motion Wall Motion Stress No regional wall motion No regional wall motion abnormalities noted. abnormalities noted. EKG Data The baseline ECG displays normal sinus rhythm. The patient was titrated from 10 mcg to a maximum of 40 mcg of dobutamine during the stress. The maximum heart rate attained was 144 beats per minute. This was 92% of maximum predicted heart rate. During dobutamine infusion, there were no ST or T wave changes noted to suggest ischemia. No arrhythmias noted. No clinical angina was noted. Interpretation Summary The estimated ejection fraction is 65 %. Normal, adequate, dobutamine echocardiogram. Negative for ischemia by EKG and echocardiographic criteria. No anginal symptoms noted. No arrhythmias noted. Appropriate blood pressure response to dobutamine. Final LVEF is 75%. Test terminated due to the attainment of target heart rate. Decreased sensitivity due to poor echo windows requiring Definity agent. No complications. The study was technically difficult. Contrast injection was performed. Ordering Physician: Dick Ryder Referring Physician: Katy Holland Performed By: Janeth Parr, PANFILO, RVT
== END | disposition home or self-care (01) ==
LOC: CVS 12:49
PROVIDERS: Family Provider Family Medicine; PCP Family Medicine; Referring Provider Internal Medicine Cardiovascular Disease; Visit Provider Internal Medicine Cardiovascular Disease
DX: R94.31 Abnormal electrocardiogram [ECG] [EKG] (principal); I10 Essential (primary) hypertension; I47.1 Supraventricular tachycardia
CPT/HCPCS: 93017; 93350; J7040; Q9957; A4216; C8928

== ENCOUNTER 2019-09-10 07:06 | Day surgery (SDC) | payer MEDICARE, OTHER, SELFPAY ==
--- NOTE | 2019-09-02 01:33 | HP_ITS ---
Intake Vital Signs 09/02/19 Height 5 ft 8 in 09/02/19 Weight: 141 lb 09/02/19 Body Mass Index (BMI) 21.4 09/02/19 Blood Pressure 110/72 09/02/19 Blood Pressure Location Rt brachial 09/02/19 Blood Pressure Position Sitting 09/02/19 Respiratory Rate 16 09/02/19 Pulse Rate 92 09/02/19 Pulse Source Monitor 09/02/19 Temperature 98.5 F 09/02/19 Temperature Source Oral 09/02/19 Pulse Ox 96 09/02/19 Oxygen Delivery Method room air 09/02/19 Body Mass Index (BMI) 21.4 Intake Visit Reasons: Consult Port Placement Chief Complaint: Colon cancer Coil Winder Hand Required: No Is patient in pain?: No Allergies No Known Allergies Allergy (Verified 09/02/19 13:23) Medications Hydrochlorothiazide [Hctz] 12.5 mg PO DAILY 08/08/17 [History Confirmed 09/02/19] Potassium Chloride [K-Dur] 20 meq PO DAILY 01/26/18 [History Confirmed 09/02/19] acetaminophen 325 mg tablet 650 mg PO Q6H PRN tab 06/19/19 [History Confirmed 09/02/19] ondansetron HCl 4 mg tablet 4 mg PO Q6H PRN tab 06/19/19 [History Confirmed 09/02/19] trazodone 50 mg tablet 100 mg PO QHS PRN tab 06/22/19 [History Confirmed 09/02/19] diltiazem CD 120 mg capsule,extended release 24 hr 120 mg PO DAILY #30 cap 07/08/19 [Rx Confirmed 09/02/19] Lorazepam [Ativan] 0.5 mg PO DAILY PRN PRN 07/28/19 [History Confirmed 09/02/19] Duloxetine Hcl [Cymbalta] 60 mg PO DAILY 08/26/19 [History Confirmed 09/02/19] Oxycodone [Oxyir] 5 mg PO Q4H PRN PRN 08/26/19 [History Confirmed 09/02/19] PFSH Medical History Supraventricular tachycardia (Acute 06/16/19) Hypertension (Chronic) Hypokalemia (Acute) Adjustment disorder (Acute) Cancer of sigmoid colon (Chronic) Chemotherapy induced neutropenia (Resolved) Chemotherapy induced nausea and vomiting (Resolved) Anemia (Resolved) Iron deficiency anemia secondary to blood loss (chronic) (Resolved) Educational circumstance (Acute) Regional lymph node metastasis present (Chronic) Neuropathy (Chronic) CYTOREDUCTION (Acute) ostomy (Acute) Surgical History Ileostomy in place (Chronic 05/28/19) 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) History of bilateral hip replacements (Chronic) History of cholecystectomy (Chronic) History of colon resection (Chronic 2016) History of dilatation and curettage (Chronic) S/P total abdominal hysterectomy (Chronic 05/28/19) S/P ureteral stent placement (Chronic 05/28/09) Family History Mother Hypertension COPD (chronic obstructive pulmonary disease) Emphysema lung Father Heart disease Social History (Updated 09/02/19 @ 14:55 by Dick De MD) Smoking Status: Never smoker alcohol intake: current alcohol intake frequency: holidays/special occasions only substance use type: does not use caffeine: No what type of physical activity do you participate in: walking HPI HPI HPI: LARA GARCIA, is a 63 F who presents to the office today for HPI HPI Surgical H&P: Yes HPI: LARA GARCIA, is a 63 F who presents to the office today for Evaluation for port placement. Patient has undergone a complicated abdominal exploration with intraperitoneal chemotherapy at [facility]. She has had a history of sigmoid colon cancer in the past and I have placed a left IJ PowerPort on her and subsequently remove that last year. She now presents to have a repeat IJ PowerPort placed. ROS General General: Yes weight change, fatigue and colon cancer; no appetite, breast cancer or weakness HEENT HEENT: No difficulty swallowing, eye injury, eye surgery, swollen glands or hoarseness Endo Endocrine: No thyroid disease, diabetes mellitus, thyroid cancer, Hair loss, heat intolerance or cold intolerance Skin Skin: No rash or changing moles Musc Musculoskeletal: Yes arthritis; no back problems, rheumatoid arthritis, gout or joint pain Cardio Cardiovascular: Yes high blood pressure; no murmur, pacemaker, heart disease, atrial fibrillation, heart attack, heart stent, palpitations, shortness of breat with exertion or chest pain Psych Psychiatric: Yes depression and anxiety; no hearing voices Resp Respiratory: No shortness of breath, No sleep apnea, No cough, No COPD, No asthma, No emphysema, No wheezing Gastro Gastrointestinal: Yes abdominal pain, No nausea or vomiting, No diarrhea, No constipation, No blood in stool, No acid reflux, No hemorrhoids, No ulcers, No gallbladder problem, No black,tarry stools Lewis Hematologic: No blood thinners, No blood disorders, No bleeding, No anemia, No blood clots Neuro Neurologic: Yes numbness, Yes tingling, No weakness Exam Const General: no acute distress, well developed, well hydrated Orientation: oriented to person, oriented to place, oriented to time [facility] Head: normocephalic, atraumatic Ears: external ears normal Mouth: moist mucous membranes Eyes Sclera: sclerae normal Pupils: normal by confrontation Neck Neck: no lymphadenopathy noted Neck mass: No Thyroid: thyroid normal, symmetrical Chest Chest palpation & inspection: normal inspection of the chest Resp Effort & Inspection: normal respiratory effort Auscultation: clear to auscultation bilaterally Percussion: percussion normal Cardio Rate: regular rate Rhythm: regular rhythm Heart Sounds: no murmurs GI Palpation: soft, no hepatosplenomegaly, no masses, nontender Rectal Exam: other Other: Rectal exam deferred. Extrem General: normal to inspection, no clubbing, cyanosis or edema Assessment & Plan Problems 1. Vascular catheter fitting or adjustment Z45.2 Plan I plan to perform a Right internal jugular port a cath placement. The planned surgical procedure was discussed extensively with the patient. The risks, benefits, anticipated outcomes and possible complication were mentioned. My staff has also explained the procedure in understandable terms and the patient was given the option to take printed material concerning the planned procedure. The patient had the opportunity to ask questions concerning the planned procedure. The patient freely consents to the planned procedure. In reading my original operative report back in 2017 I state that Several attempts were made to gain access into the internal jugular vein. I used the ultrasound was able to gain access into the internal jugular vein however I was unable to direct the guidewire down successfully into the superior vena cava I subsequently aborted this and went to a subclavian approach on the left side. Coding Level of Care Code Off vis,est,level 3 Diagnoses Vascular catheter fitting or adjustment Z45.2 09/02/19 1455 <Electronically signed by Dick moya MD> Date _ Dick De MD I have re-examined the patient. There are no clinical changes since date of exam.
[2019-09-02 13:22] VITALS: BMI 21.4
[2019-09-08 10:41] VITALS: BMI 21.8
[2019-09-10 07:33] VITALS: BP 153/90; PULSE 72; RESP 14; TEMP 36.9; O2SAT 96; BMI 21.7
[2019-09-10] MEDS: Lactated Ringers 1,000 ML 100 ML IV (08:02)
[2019-09-10] MEDS: Cefazolin 2 GM in 0.9% Normal Saline 100 ML IV (09:19)
[2019-09-10] MEDS: Bupivacaine Mpf 0.5% 30 ML VIAL (09:31)
--- NOTE | 2019-09-10 09:45 | OP.PCM_ITS ---
Problem List (1) Encounter for adjustment and management of vascular access device Status: Acute Report of Operation Date of Procedure: 09/10/19 Pre-Operative Diagnosis: Encounter for vascular fitting and adjustment Post-Operative Diagnosis: Same Surgery/Procedure Performed:: Placement of a right IJ PowerPort reference #[id number] lot number [id number] Type of Anesthesia:: Local MAC Anesthesiologist: John Collins Description of Procedure: She was brought into the operating room. Placed in the supine position. Ultrasound was used to identify the internal jugular vein the neck and chest were then marked then sterilely prepped and draped in usual fashion local was injected into the neck Seldinger's technique was used to gain access into the internal jugular vein. Gluidewire was placed through the needle needle was removed fluoroscopy was used to confirm placement of the wire. I injected local in the chest made an incision created a pocket for the port with the use of electrocautery injected local over the collarbone into the neck skin meño was made into the neck dilator and sheath were placed over the guidewire the guidewi re and dilator were removed single lumen catheter was placed through the sheath and the sheath was removed. I used fluoroscopy to confirm proper length. I tunneled from the pocket on the chest over the collarbone into the neck and brought the catheter down I cut to length. I placed the locking up on the catheter. I placed the port under the catheter. The tube was secured with a locking hub. It was flushed and irrigated with 4 cc of heparin flush. It flushed well. It was sutured into the pocket created with 2 sutures of 0 Prolene skin incisions were brought together with deep dermal stitches of 3-0 Vicryl then running 4-0 Monocryl. Dermabond was applied sterile dressings were applied and the patient tolerated the procedure well. - Admit VTE Documentation VTE Present on Admission: No VTE Mechan Device Prophylaxis: SCD's VTE Pharm Prophylaxis ordered?: No Reason prophylaxis not ordered:: Treatment Not Indicated
--- NOTE | 2019-09-10 09:47 | DCINST_ITS ---
Discharge Diet: No Restrictions - Pain medication may cause nausea. You should typically eat light foods as you take your pain medication. Discharge Activity: May Shower - with the bandage in place 1-2 days after surgery. DO NOT SHOWER WHEN YOUR PORT IS ACCESSED. Additional Activity Instructions:: May not drive, work with heavy equipment, or sign legal documents for [address] if you are no longer taking narcotic pain medications. You may drive when you are no longer taking pain medications. Additional Dressing/Incision Instructions:: Leave the bandage on for 2-3 days. When you remove the bandage, leave the steri-strips intact until they fall off. Allergies/Adverse Reactions: Allergies No Known Allergies Allergy (Verified 09/10/19 07:30) Medications to take at Discharge Hydrochlorothiazide [Hctz] 12.5 mg PO SUMOWEFRSA 08/08/17 Potassium Chloride [K-Dur] 20 meq PO SUMOWEFRSA 01/26/18 acetaminophen 325 mg tablet 650 mg PO Q6H PRN tab 06/19/19 ondansetron HCl 4 mg tablet 4 mg PO Q6H PRN tab 06/19/19 trazodone 50 mg tablet 100 mg PO QHS PRN tab 06/22/19 diltiazem CD 120 mg capsule,extended release 24 hr 120 mg PO DAILY #30 cap 07/08/19 Lorazepam [Ativan] 0.5 mg PO DAILY PRN PRN 07/28/19 Duloxetine Hcl [Cymbalta] 60 mg PO DAILY 08/26/19 Oxycodone [Oxyir] 5 mg PO Q4H PRN PRN 08/26/19 Lidocaine/Prilocaine [Lidocaine-Prilocaine Cream] 1 applicatio TP DAILY PRN PRN 30 Days #1 tube 09/08/19 Oxycodone HCl/Acetaminophen [Percocet 5/325] 1 - 2 tab PO Q4H PRN PRN 6 Days #30 tab 09/10/19 The following prescriptions were given: Oxycodone HCl/Acetaminophen [Percocet 5/325] 1 - 2 tab PO Q4H PRN PRN 6 Days #30 tab PRN Reason: Pain Prescription Printed Primary Care Physician: Katy Holland MD [Primary Care Provider] - Test Results: Test results from this visit will be discussed in further detail at your follow- up appointment, if applicable. Please Follow Up With: Flori Gautam MD - [phone] When: Please plan to follow up in 7 days in the office.
--- NOTE | 2019-09-10 09:48 | RAD_ITS ---
STUDY: X-RAY CHEST REASON FOR EXAM: Female, 63 years old. Post port placement. TECHNIQUE: Single AP portable view of the chest. COMPARISON: Comparison is made with prior study dated June 16, 2019. FINDINGS: A right-sided portacatheter has been placed. The tip is in the midportion of the superior vena cava. The lungs are clear and expanded. There is no demonstrated pleural abnormality. Normal size heart. Normal mediastinum and sushil. Normal visualized pulmonary arteries. There is atherosclerotic tortuosity of the aortic arch and descending thoracic aorta. Normal visualized thoracic spine. Normal visualized ribs, clavicles, and shoulders. There is no demonstrated abnormality of the visualized soft tissue structures of the upper abdomen. RAD/CXR for Line Placement IMPRESSION: The tip of the right portacatheter is in the midportion of the superior vena cava. Electronically Signed: Chip Dubois, at 10:40 EDT , Service support ,
[2019-09-10 10:02] VITALS: BP 142/86; BP 153/90; PULSE 76; RESP 18; TEMP 36.4; O2SAT 96
[2019-09-10 10:05] VITALS: BP 136/84; BP 153/90; PULSE 70; RESP 16; O2SAT 97
[2019-09-10 10:10] VITALS: BP 144/80; BP 153/90; PULSE 71; RESP 16; O2SAT 97
[2019-09-10 10:21] VITALS: BP 150/88; BP 153/90; PULSE 71; RESP 16; TEMP 36.2; O2SAT 98
[2019-09-10 11:10] VITALS: BP 153/90
== END 2019-09-10 11:28 | disposition home or self-care (01) ==
LOC: SDC 07:06 → AC 07:07
PROVIDERS: Family Provider Family Medicine; PCP Family Medicine; Referring Provider Surgery; Visit Provider Surgery
PROC: (CPT 36571; principal; 2019-09-10 09:00)
DX: C18.7 Malignant neoplasm of sigmoid colon (principal); Z45.2 Encounter for adjustment and management of vascular access device; I10 Essential (primary) hypertension; G62.9 Polyneuropathy, unspecified; F41.9 Anxiety disorder, unspecified; Z90.49 Acquired absence of other specified parts of digestive tract; Z79.899 Other long term (current) drug therapy
CPT/HCPCS: 00532; 36571; 71045; 77001; J7120; C1788

== ENCOUNTER → 2019-09-13 | Outpatient (CLI) | payer MEDICARE, OTHER, SELFPAY ==
[2019-08-26 10:59] VITALS: BMI 21.4
[2019-09-10 07:33] VITALS: BMI 21.7
--- NOTE | 2019-09-13 13:15 | CT_ITS ---
STUDY: CT ABDOMEN AND PELVIS WITH CONTRAST REASON FOR EXAM: Female, 63 years old. Abdominal pain and distention, history of colon cancer RADIATION DOSAGE (If Supplied By Facility): CTDIvol = ( 10.29 ) mGy, DLP = ( 846.24 ) mGycm TECHNIQUE: Transaxial images were obtained from the dome of the diaphragm to the symphysis pubis without oral contrast. IV 100ML ISOVUE 370 100ml was administered. Sagittal and coronal images were reconstructed. Individualized dose optimization techniques were used for this CT. COMPARISON: 06/16/2019 FINDINGS: There are chronic interstitial fibrotic changes of the lung bases. The visualized portions of the heart are within normal limits. Liver is unremarkable aside from a stable 1 cm cyst in the right lobe and changes consistent with previous cholecystectomy. There are surgical clips in the gallbladder fossa consistent with a prior cholecystectomy. 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 Normal pancreas. Normal bilateral adrenal glands. No obstructive uropathy, stable 1.5 cm left renal cyst. Stable right lower quadrant ostomy site Normal visualized stomach. Normal small intestine. Normal colon. There is non-visualization of the appendix. Normal abdominal aorta. Normal inferior vena cava. Normal retroperitoneum. Bladder is not well visualized due to artifact from bilateral hip replacements but there is no demonstrated abnormality. There is absence of the uterus consistent with a prior hysterectomy. There are diffuse degenerative changes of the visualized lumbar spine, and pelvis. Bilateral hip replacements free of complication CT/Abdomen/Pelvis W IV Cont ONLY IMPRESSION: No suspicious solid organ abnormality, stable hepatic and left renal cyst. No new finding since the previous study. No free intraperitoneal fluid, air, or suspicious adenopathy Stable appearance of a right lower quadrant ostomy, no complications noted Degenerative bony changes No significant interval change Electronically Signed: Christian Jolly MD at 11:35 EDT , Service support ,
--- NOTE | 2019-09-13 13:15 | CT_ITS ---
STUDY: CT CHEST WITH CONTRAST REASON FOR EXAM: Female, 63 years old. Colon cancer follow-up RADIATION DOSAGE (If Supplied By Facility): CTDIvol = ( 10.29 ) mGy, DLP = ( 846.24 ) mGycm TECHNIQUE: Transaxial imaging was performed following intravenous administration of IV Isovue 370 100ml. Multiplanar coronal and sagittal images were reformatted. Individualized dose optimization techniques were used for this CT. COMPARISON: 03/02/2019 FINDINGS: Soft tissue windows show a normal-appearing thyroid gland. There are scattered subcentimeter axillary and mediastinal lymph nodes. No pleural or pericardial effusions. Lung windows show the lungs to be normally expanded without a superimposed infiltrate, or suspicious noncalcified mass or nodule. Normal heart and pericardium. Normal hilar regions. Normal enhanced pulmonary arteries. Normal aorta arch and descending thoracic aorta. There are multi-level degenerative changes of the thoracic spine. CT/Chest WITH Contrast IMPRESSION: No suspicious soft tissue mass or nodule, no organizing infiltrate or effusion No suspicious axillary, mediastinal, or perihilar adenopathy No significant interval change Electronically Signed: Christian Jolly MD at 12:04 EDT , Service support ,
== END | disposition home or self-care (01) ==
LOC: CT 13:14
PROVIDERS: Family Provider Family Medicine; PCP Family Medicine; Referring Provider Internal Medicine Hematology & Oncology; Visit Provider Internal Medicine Hematology & Oncology
DX: C18.7 Malignant neoplasm of sigmoid colon (principal)
CPT/HCPCS: 71260; 74177; Q9967; A4216

== ENCOUNTER 2019-09-27 10:33 | Emergency (ER) | payer MEDICARE, OTHER, SELFPAY ==
[2019-09-27 09:52] VITALS: BMI 20.5
--- NOTE | 2019-09-27 10:34 | CT_ITS ---
STUDY: CT ABDOMEN AND PELVIS WITH CONTRAST REASON FOR EXAM: Female, 64 years old. Diarrhea with small bowel obstruction. Sigmoid colon has been removed RADIATION DOSAGE (If Supplied By Facility): CTDIvol = ( 11.98 ) mGy, DLP = ( 525.24 ) mGycm TECHNIQUE: Transaxial images were obtained from the dome of the diaphragm to the symphysis pubis without oral contrast. IV 100mL Isovue-300 100 was administered. Sagittal and coronal images were reconstructed. Individualized dose optimization techniques were used for this CT. COMPARISON: 09/13/2019 FINDINGS: The visualized lung bases are unremarkable. The visualized portions of the heart are within normal limits. Small amount of intrahepatic biliary ductal dilation, stable. Otherwise unremarkable liver. There is non-visualization of the gallbladder, which may be secondary to either contraction or a prior cholecystectomy. Nonvisualized spleen. Normal pancreas. Normal bilateral adrenal glands. Normal right kidney. Nonenhancing left upper pole renal cyst, otherwise unremarkable left kidney. Normal visualized stomach. No evidence of small bowel obstruction. Several fluid-filled loops of small bowel. Status post partial colectomy with right lower quadrant ostomy. Rectal stump appears within normal limits. Fluid-filled loops of right hemicolon. The appendix is visualized and appears normal. Normal abdominal aorta. Normal inferior vena cava. Normal retroperitoneum. Normal urinary bladder. Trace pelvic free fluid. Status post hysterectomy. Normal abdominal wall. Osseous degenerative changes. Postsurgical change of the left hip CT/Abdomen/Pelvis W IV Cont ONLY IMPRESSION: Status post partial colectomy with right lower quadrant ostomy. Fluid-filled loops of small bowel without evidence of definitive small bowel obstruction. More prominent loop of distended small bowel in the left lower quadrant region. Pelvic free fluid is noted Unremarkable appendix Remaining chronic findings as above Electronically Signed: Demetrius Cornell DO at 12:36 EST Tel , Service support ,
[2019-09-27 10:35] VITALS: BP 111/79; PULSE 93; RESP 17; TEMP 36.8; O2SAT 96; BMI 20.8
[2019-09-27 10:40] VITALS: BP 111/79; PULSE 95; RESP 17; O2SAT 95
[2019-09-27] MEDS: HYDROmorphone 1 MG/ML Syringe IV (10:56)
[2019-09-27] MEDS: Ondansetron 4 MG/2 ML Vial IV (10:56)
[2019-09-27] MEDS: 0.9% Normal Saline 1,000 ML 1000 ML IV (10:56)
[2019-09-27 11:19] LABS: Absolute Lymphocyte Count 0.84 X10^3/uL (0.83-4.51); Absolute Neutrophil Count 10.6 X10^3/uL (2.0-7.7); Basophil# 0.05 X10^3/uL; Basophil% 0.4 % (0-1); Eosinophil# 0.09 X10^3/uL; Eosinophils% 0.8 % (0-5); Hematocrit 35.9 % (37-47); Hemoglobin 11.8 g/dL (12.0-15.0); Lymphocyte # 0.84 X10^3/ul (4.0); Mean Corp Hgb Conc 32.9 g/dL (32-36); Mean Corpuscular Hgb 31.9 pg (27.0-32.0); Mean Platelet Vol. 9.4 fl (6.2-12.0); Monocyte# 0.31 X10^3/uL; Monocyte% 2.6 % (0-10); NRBC Flagged by Analyzer 0 % (0-5); Neutrophil # 10.58 X10^3/uL (2.7-7.7); Neutrophil % 88.6 % (47-70); Platelet Count 446 K/mm3 (150-450); RBC Distribution Width CV 14.1 % (11.6-14.6); RBC Distribution Width SD 50.3 fl (35.1-43.9); White Blood Count 11.9 K/mm3 (4.4-11.0)
--- NOTE | 2019-09-27 11:22 | ED.DCSUM_ITS ---
History of Present Illness Chief Complaint: Abd Pain Informant: Patient Onset: Days Context: Gradual Onset Timing: Continuous Current Severity: Moderate Maximum Severity: Severe Narrative: The patient presents to the emergency department from the oncology center. The patient has history of recurrent colon cancer. She underwent exploratory laparotomy in May with partial removal of her colon, hysterectomy, splenic removal, and removal of part of her pancreas. She also had chemotherapy placed in the peritoneum at that time. She has been following with the [facility] [place]. She just resumed her chemotherapy. She apparently had a reaction to 1 and that had to be stopped. She did do the 5?FU, but began to have abdominal pain and diarrhea. She states it comes in waves. She gets this cramping abdominal pain and then will have high output ileostomy. She also admits to nausea. She does not think she had fever or chills. She denies any other systemic symptoms. Prior similar symptoms: Yes Recent Illness/Hospitalization: Yes Past Medical History - Allergies and Home Meds Allergies/Adverse Reactions: Allergies irinotecan Adverse Reaction (Intermediate, Verified 09/27/19 10:34) Other Lightheadedness and a sense of heat during infusion, recurred after medication with Benadryl Primary Care Physician: Katy Holland MD [Primary Care Provider] - Prior records reviewed: Yes Past Medical History: - Surgical History: - - Microscopic partial colectomy Smoking Status: Never smoker - Family History Paternal Family History: Family History (Last Reviewed 09/27/19 @ 09:51 by Mya Tavarez) Mother Hypertension COPD (chronic obstructive pulmonary disease) Emphysema lung Father Heart disease Family History: Reports: Heart Disease Review of Systems General: Denies: Chills, Fever, Sweats Eyes: Denies: Visual changes - bilaterally, Diplopia ENT: Denies: Rhinorrhea, Sore throat Cardiovascular: Denies: Chest pain, Palpitations Respiratory: Denies: Dyspnea, Cough, Dyspnea on exertion Gastrointestinal: Reports: Abdominal pain, Nausea, Diarrhea. Denies: Vomiting, Melena, Hematochezia Genitourinary: Denies: Dysuria, Hematuria, Frequency Musculoskeletal: Denies: Back pain, Extremity Pain Skin: Denies: Rash, Wounds Neurological: Denies: Headache, Weakness, Numbness Physical Exam Vital Signs/Narrative: Vital Signs Temp Pulse Resp BP Pulse Ox 09/27/19 10:40 95 17 111/79 95 09/27/19 10:35 98.2 F 93 17 111/79 96 Inital Vital Signs reviewed: Yes General: Well nourished, Well developed, No Acute Distress Head: Normocephalic, Atraumatic Eyes: Perrl, EOMI ENT: Moist mucous membranes, No rhinorrhea Neck: Supple, Nontender Cardiovascular: Regular rate, Regular rhythm, No murmurs Respiratory: No distress, CTA bilaterally, Chest nontender Abdomen: Soft, Nondistended, No masses, Tender, Hyperactive bowel sounds. Negative for: Guarding, Rebound tenderness Back: Nontender, Normal Inspection Extremities: Nontender, No edema Skin: Normal color, No rash Neurological: Alert, Oriented x3, Cranial nerves II-XII grossly intact, Normal Strength, Normal Sensation Psychological: Normal affect, Normal Mood Diagnostic/Tx/Re-eval Clinical Impression(s) from Imaging Studies Abdomen/Pelvis CT 09/27/19 10:34 IMPRESSION: Status post partial colectomy with right lower quadrant ostomy. Fluid-filled loops of small bowel without evidence of definitive small bowel obstruction. More prominent loop of distended small bowel in the left lower quadrant region. Pelvic free fluid is noted Unremarkable appendix Remaining chronic findings as above Electronically Signed: Demetrius Cornell DO at 12:36 EST Tel , Service support , Clinical Impression(s) from Imaging Studies Abdomen/Pelvis CT 09/27/19 10:34 IMPRESSION: Status post partial colectomy with right lower quadrant ostomy. Fluid-filled loops of small bowel without evidence of definitive small bowel obstruction. More prominent loop of distended small bowel in the left lower quadrant region. Pelvic free fluid is noted Unremarkable appendix Remaining chronic findings as above Electronically Signed: Demetrius Cornell DO at 12:36 EST Tel , Service support , Abnormal Lab Results 09/27/19 09/27/19 09/27/19 10:55 10:55 10:55 WBC 11.9 H RBC 3.70 L Hgb 11.8 L Hct 35.9 L MCV 97.0 MCH 31.9 MCHC 32.9 RDW Std Deviation 50.3 H RDW Coeff of Akira 14.1 Plt Count 446 MPV 9.4 Immature Gran % (Auto) 0.600 Neut % (Auto) 88.6 H Lymph % (Auto) 7.0 L Meade % (Auto) 2.6 Eos % (Auto) 0.8 Baso % (Auto) 0.4 Absolute Neuts (auto) 10.6 H Absolute Lymphs (auto) 0.84 Nucleated RBC % 0 Sodium 133 L Potassium 3.5 Chloride 97 L Carbon Dioxide 26.0 Anion Gap 10 BUN 28 H Creatinine 1.09 H Estim Creat Clear Calc 49.74 Est GFR (MDRD) Af Amer 65 Est GFR (MDRD) Non-Af 54 L BUN/Creatinine Ratio 25.7 H Glucose 137 H Lactic Acid 1.7 Calcium 9.1 Total Bilirubin 1.30 H AST 17 ALT 21 Alkaline Phosphatase 94 Total Protein 7.3 Albumin 3.4 Globulin 3.9 Albumin/Globulin Ratio 0.9 Lipase 63 L - Medical Decision Making The patient presents with abdominal pain and diarrhea. She is had a lot of output enterostomy. IV was established. She was given fluids and analgesics. The pain had totally resolved. CT shows a lot of fluid within the small bowel loops, but no obstruction or evidence of colitis. Labs are relatively unremarkable. On reevaluation, the patient is resting comfortably. She was given a total of 2 L of fluids. Per oncology. The patient was able to eat and drink. She had no further symptoms. She wants to go home and I do feel that this is reasonable. She was counseled on concerning symptoms and reasons to return. She will be discharged home. Impression 1. Diarrhea ED Disposition - Plan for ED Patient: Disposition: Home or Assisted Living Instructions: ABDOMINAL PAIN, Unknown Cause, (Female) Prescriptions: Ondansetron [Zofran Odt] 4 mg PO Q8H PRN PRN #10 tab PRN Reason: Nausea Prescription Printed Referrals: Katy Holland MD [Primary Care Provider] -
[2019-09-27 11:38] LABS: ALB/GLOB Ratio 0.9 RATIO (0.9-2.4); AST(SGOT) 17 U/L (15-37); Alanine Aminotransfer ALT/SGPT 21 U/L (13-56); Albumin, Serum 3.4 g/dL (3.2-5.0); Alkaline Phosphatase 94 U/L (45-117); Anion Gap 10 (5-15); BUN 28 mg/dL (7-18); BUN/Creat Ratio 25.7 RATIO (10-20); Calcium,Total 9.1 mg/dL (8.5-10.1); Chloride 97 mmol/L (98-107); Creatinine, Serum 1.09 mg/dL (0.55-1.02); EST Glomerular Filtration Rate 54 mL/min (>60); Est Glom Filt Rate - Afr Amer 65 mL/min (>60); Estimated Creatinine Clearance 49.74 ml/min; Globulin 3.9 g/dL (2.2-4.2); Glucose 137 mg/dL (74-106); Lipase 63 U/L (73-393); Potassium 3.5 mmol/L (3.5-5.1); Protein, Total 7.3 g/dL (6.4-8.2); Sodium Level 133 mmol/L (136-145)
[2019-09-27 11:48] LABS: Lactic Acid 1.7 mmol/L (0.4-2.0)
[2019-09-27] MEDS: 0.9% Normal Saline 1,000 ML 999 ML IV (12:55)
[2019-09-27 12:56] VITALS: RESP 18
[2019-09-27 14:24] VITALS: RESP 18
[2019-09-27] MEDS: 0.9% Saline Lock 10 ML Syringe IV (15:00)
== END 2019-09-27 15:16 | disposition home or self-care (01) ==
LOC: ED 11:13
PROVIDERS: Emergency Provider Emergency Medicine; Family Provider Family Medicine; PCP Family Medicine
DX: R19.7 Diarrhea, unspecified (principal); C18.7 Malignant neoplasm of sigmoid colon; Z90.49 Acquired absence of other specified parts of digestive tract; Z90.81 Acquired absence of spleen; Z90.411 Acquired partial absence of pancreas; Z85.038 Personal history of other malignant neoplasm of large intestine; Z93.2 Ileostomy status
CPT/HCPCS: 36591; 74177; 80053; 83605; 83690; 85025; 96361; 96374; 96375; 99282; J7030; Q9967; A4216; J2405